=== PATIENT | female | born 1995 | race Caucasian/White ===

== ENCOUNTER 2022-08-23 16:17 | Outpatient (CLI) | payer BC | END 2022-08-23 16:18 | disposition home or self-care (01) | LOC: CSHRAD 16:17 | PROVIDERS: ATTEND Internal Medicine Rheumatology | DX: M46.1 Sacroiliitis, not elsewhere classified (principal) | CPT/HCPCS: 72202 ==

== ENCOUNTER 2022-11-14 13:40 | Outpatient (CLI) | payer BC | END 2022-11-14 13:41 | disposition home or self-care (01) | LOC: CSHMRI 13:40 | PROVIDERS: ATTEND Internal Medicine Rheumatology | DX: M45.A0 Non-radiographic axial spondyloarthritis of unspecified sites in spine (principal); M71.88 Other specified bursopathies, other site | CPT/HCPCS: 72197 ==